=== PATIENT | male | born 1960 | race Caucasian/White ===

== ENCOUNTER 2023-06-27 15:15 | Emergency (ER) | payer OTHER ==
[~2023-06-27] VITALS: Ht 177.8 cm; Wt 96.1 kg
[2023-06-27] MEDS ORDERED: TAMS1CAP17 PO (15:27)
[2023-06-27 16:59] LABS: BASO # 0.1 10^3/uL (0.0-0.2); EOS % 0.6 % (0.0-3.0); HEMATOCRIT 47.6 % (42.0-52.0); HEMOGLOBIN 15.7 g/dl (13.5-17.5); LYMPH # 1.4 10^3/uL (1.5-5.0); LYMPH % 22.6 % (24.0-44.0); MEAN CORPUSCULAR HEMOGLOBIN 30.6 pg (27.0-33.0); MEAN CORPUSCULAR VOLUME 92.8 fl (80.0-96.0); MONO # 0.4 10^3/uL (0.0-0.8); MONO % 5.9 % (2.0-8.0); NEUTROPHILS # 4.4 10^3/uL (1.5-8.5); NEUTROPHILS % 69.6 % (36.0-66.0); PLATELET COUNT, AUTOMATED 232 10^3/uL (150-450); RED BLOOD COUNT 5.13 10^6/uL (4.30-6.10); WHITE BLOOD COUNT 6.3 10^3/uL (4.0-10.0)
[2023-06-27 17:18] LABS: BLOOD UREA NITROGEN 16 MG/DL (9-23); CALCIUM LEVEL 9.6 MG/DL (8.3-10.6); CARBON DIOXIDE LEVEL 28 MMOL/L (20-31); CHLORIDE LEVEL 107 MMOL/L (98-107); CREATININE FOR GFR 0.88 MG/DL (0.70-1.30); GLOMERULAR FILTRATION RATE > 60.0 (>49); GLUCOSE, FASTING 106 MG/DL (74-106); POTASSIUM SERUM 4.5 MMOL/L (3.5-5.1); SODIUM LEVEL 139 MMOL/L (136-145)
[2023-06-27 17:49] LABS: INR 1.12; PARTIAL THROMBOPLASTIN TIME 26.3 SECONDS (24.8-34.2); PROTHROMBIN TIME 14.1 SECONDS (12.5-14.5)
[2023-06-27 19:51] VITALS: BP 158/89; TEMP 97.6; O2SAT 99
== END 2023-06-27 19:52 | disposition home or self-care (01) ==
LOC: M ED 15:15
DX: R06.02 Shortness of breath (principal); Z82.49 Family history of ischemic heart disease and other diseases of the circulatory system

== ENCOUNTER 2023-07-12 22:34 | Emergency (ER) | payer OTHER ==
[~2023-07-12] VITALS: Ht 177.8 cm; Wt 98.3 kg
[~2023-07-12 22:34] MED LIST: TAMS1CAP17 PO
[2023-07-12 23:39] LABS: HEMATOCRIT 44.4 % (42.0-52.0); MEAN CORPUSCULAR HEMOGLOBIN 31.4 pg (27.0-33.0); MEAN CORPUSCULAR HGB CONC 33.8 g/dl (32.0-36.5); MEAN CORPUSCULAR VOLUME 92.9 fl (80.0-96.0); PLATELET COUNT, AUTOMATED 192 10^3/uL (150-450); RED BLOOD COUNT 4.78 10^6/uL (4.30-6.10); WHITE BLOOD COUNT 7.4 10^3/uL (4.0-10.0)
[2023-07-13 00:07] LABS: ALBUMIN 3.6 G/DL (3.2-5.2); ALKALINE PHOSPHATASE 74 U/L (46-116); ALT/SGPT 25 U/L (7.0-40); AST/SGOT 18 U/L (<34); BILIRUBIN,TOTAL 0.5 MG/DL (0.3-1.2); BLOOD UREA NITROGEN 19 MG/DL (9-23); CALCIUM LEVEL 9.1 MG/DL (8.3-10.6); CARBON DIOXIDE LEVEL 27 MMOL/L (20-31); CHLORIDE LEVEL 108 MMOL/L (98-107); CK-MB VALUE MASS < 1.0 NG/ML (<3.6); CREATININE FOR GFR 0.69 MG/DL (0.70-1.30); GLOMERULAR FILTRATION RATE > 60.0 (>49); GLUCOSE, FASTING 130 MG/DL (74-106); POTASSIUM SERUM 3.9 MMOL/L (3.5-5.1); SODIUM LEVEL 139 MMOL/L (136-145); TOTAL PROTEIN 6.4 G/DL (5.7-8.2)
[2023-07-13 00:09] LABS: CPK CREATINE PHOSPHOKINASE 58 U/L (46-171); MB/CK RELATIVE INDEX 1.72 (< OR =4)
[2023-07-13] MEDS ORDERED: ISOVUE-370 76% 100ML VIAL As Ordered ONE (00:16)
[2023-07-13 01:00] VITALS: BP 143/87; TEMP 98.1; O2SAT 96
== END 2023-07-13 01:25 | disposition home or self-care (01) ==
LOC: M ED 22:34
DX: R06.00 Dyspnea, unspecified (principal); Z79.899 Other long term (current) drug therapy
CPT/HCPCS: 71275; 80053; 82550; 82553; 84484; 85027; 85379; 87486; 87581; 87633; 87798; 93970; 99284; Q9967